=== PATIENT | female | born 1995 | race Caucasian/White ===

== ENCOUNTER 2022-11-21 18:35 | Emergency (ER) | payer SELFPAY ==
[2022-11-21 19:12] LABS: #Basophils 0.1 10x3/uL (0.0-0.2); #Eosinphils 0.1 10x3/uL (0.0-0.5); #Monocytes 0.6 10x3/uL (0.0-1.1); #Neutrophils 4.2 10x3/uL (1.5-8.4); %Basophils 0.7 % (0.0-2.0); %Eosinophils 1.6 % (0.0-6.0); %Lymphocytes 35.1 % (18.0-47.0); %Monocytes 7.7 % (0.0-10.0); %Neutrophils 54.6 % (40.0-75.0); Hematocrit 35.4 % (34.9-44.5); Hemoglobin 11.7 g/dL (12.0-15.5); Mean Corpuscular HGB CONC 33.1 g/dL (32.0-36.0); Mean Corpuscular Hemoglobin 31.5 pg (27.0-33.0); Mean Corpuscular Volume 95.4 fl (81.6-98.3); Mean Platelet Volume 9.6 fl (7.4-10.4); Platelet Count 270 10x3/uL (150-450); RBC Distribution Width 12.6 % (11.5-14.5); Red Blood Cell (RBC) Count 3.71 10x6/uL (3.90-5.03); White Blood Cell (WBC) Count 7.7 10x3/uL (3.5-10.5)
[2022-11-21 19:29] LABS: ALT (SGPT) 58 U/L (8-55); AST (SGOT) 32 U/L (5-34); Albumin 4.1 g/dL (3.5-5.0); Alkaline Phosphatase 76 U/L (40-110); Anion Gap 12 mmol/L (10-20); BUN (Urea Nitrogen) 13 mg/dL (7.0-18.7); Bilirubin, Total 0.5 mg/dL (0.2-1.2); Calc. Creatinine Clearance 0 mL/min (70-130); Carbon Dioxide 22 mmol/L (22-29); Chloride 107 mmol/L (98-107); Estimated GFR 91; Globulin 2.6 g/dL (2.4-3.5); Glucose 101 mg/dL (70-105); Potassium 4.1 mmol/L (3.5-5.1); Protein, Total 6.7 g/dL (6.0-8.3); Sodium 137 mmol/L (136-145)
[2022-11-21] MEDS ORDERED: Ketorolac Tromethamine 30 MG/ML VIAL ONE (21:04)
== END 2022-11-21 21:11 | disposition home or self-care (01) ==
LOC: CSHERS 18:35
DX: R07.89 Other chest pain (principal); R06.02 Shortness of breath; F17.290 Nicotine dependence, other tobacco product, uncomplicated
CPT/HCPCS: 36415; 71045; 80053; 85025; 93005; 96372; J1885

== ENCOUNTER 2023-02-01 16:52 | Emergency (ER) | payer SELFPAY ==
[2023-02-01] MEDS ORDERED: Dicyclomine 20 MG/2 ML VIAL ONE (17:35)
[2023-02-01] MEDS ORDERED: Ondansetron PF 4 MG/2 ML Vial ONE (17:35)
[2023-02-01 17:42] LABS: #Eosinphils 0.1 10x3/uL (0.0-0.5); #Monocytes 0.6 10x3/uL (0.0-1.1); #Neutrophils 3.9 10x3/uL (1.5-8.4); %Basophils 0.3 % (0.0-2.0); %Lymphocytes 32.9 % (18.0-47.0); %Monocytes 8.6 % (0.0-10.0); %Neutrophils 55.9 % (40.0-75.0); Hematocrit 38.8 % (34.9-44.5); Hemoglobin 12.8 g/dL (12.0-15.5); Mean Corpuscular Hemoglobin 30.8 pg (27.0-33.0); Mean Corpuscular Volume 93.5 fl (81.6-98.3); Mean Platelet Volume 9.7 fl (7.4-10.4); Platelet Count 255 10x3/uL (150-450); RBC Distribution Width 11.9 % (11.5-14.5); Red Blood Cell (RBC) Count 4.15 10x6/uL (3.90-5.03)
[2023-02-01 17:49] LABS: ALT (SGPT) 19 U/L (8-55); AST (SGOT) 20 U/L (5-34); Albumin 4.2 g/dL (3.5-5.0); Alkaline Phosphatase 62 U/L (40-110); Anion Gap 12 mmol/L (10-20); BUN (Urea Nitrogen) 11 mg/dL (7.0-18.7); Bilirubin, Total 0.3 mg/dL (0.2-1.2); Calc. Creatinine Clearance 0 mL/min (70-130); Calcium 8.8 mg/dL (7.8-10.44); Carbon Dioxide 22 mmol/L (22-29); Chloride 108 mmol/L (98-107); Estimated GFR 117; Globulin 2.6 g/dL (2.4-3.5); Glucose 103 mg/dL (70-105); Lipase 17 U/L (8-78); Magnesium 1.9 mg/dL (1.6-2.6); Potassium 4.2 mmol/L (3.5-5.1); Protein, Total 6.8 g/dL (6.0-8.3); Sodium 138 mmol/L (136-145)
[2023-02-01 17:53] LABS: Troponin I Less than 0.010 ng/mL (< 0.028)
[2023-02-01 18:20] LABS: Bilirubin Neg (Negative); Blood, Urine Negative (Negative); Clarity Clear (Clear); Glucose, Urine (Dipstick) Normal (Negative); Ketone, Urine 5 mg/dL (Negative); Leukocyte Negative (Negative); Nitrite Negative (Negative); Protein, Urine (Dipstick) 30 mg/dl (Neg-Trace); Urobilinogen Normal mg/dL (Less than 2)
[2023-02-01 18:23] LABS: Pregnancy Test - Urine (BHCG) Negative (Negative); Pregu Control Background? CLEAR/WHITE (CLR/WHITE); Pregu Control Bar Appear? YES (CONTROL BAR)
[2023-02-01 18:33] LABS: CAUTI Indications for Culture Dysuria,urgency,freq; RBC/HPF None Seen HPF (0-3)
[2023-02-01 18:34] LABS: Bacteria/HPF 1+ HPF (None Seen)
[2023-02-01 18:37] LABS: Calcium Oxalate Crystals 2+ HPF (None Seen)
[2023-02-01 18:39] LABS: Urine Culture Reflex No No
[2023-02-01] MEDS ORDERED: Ketorolac Tromethamine 30 MG/ML VIAL ONE (18:39)
[2023-02-01] MEDS ORDERED: Azithromycin 250 MG TAB ONE (19:56)
== END 2023-02-01 20:06 | disposition home or self-care (01) ==
LOC: CSHERS 16:52
DX: R11.10 Vomiting, unspecified (principal); R19.7 Diarrhea, unspecified; F17.290 Nicotine dependence, other tobacco product, uncomplicated
CPT/HCPCS: 71045; 76705; 80053; 81001; 81025; 83690; 83735; 84484; 85025; 93005; 94760; 96361; 96372; 96374; 96375; J1885; J2405

== ENCOUNTER 2023-04-28 23:05 | Emergency (ER) | payer SELFPAY ==
[2023-04-29 00:15] LABS: Bilirubin Neg (Negative); Blood, Urine Negative (Negative); Glucose, Urine (Dipstick) Normal (Negative); Ketone, Urine Negative (Negative); Leukocyte Negative (Negative); Nitrite Negative (Negative); Protein, Urine (Dipstick) Negative (Neg-Trace); Specific Gravity, Urine 1.015 (1.005-1.030); Urobilinogen Normal mg/dL (Less than 2)
[2023-04-29 00:25] LABS: Clarity Clear (Clear)
[2023-04-29 00:26] LABS: #Basophils 0.1 10x3/uL (0.0-0.2); #Eosinphils 0.2 10x3/uL (0.0-0.5); #Monocytes 0.6 10x3/uL (0.0-1.1); #Neutrophils 3.5 10x3/uL (1.5-8.4); %Basophils 0.8 % (0.0-2.0); %Eosinophils 2.4 % (0.0-6.0); %Lymphocytes 44.5 % (18.0-47.0); %Monocytes 7.8 % (0.0-10.0); %Neutrophils 44.1 % (40.0-75.0); Hematocrit 38.1 % (34.9-44.5); Hemoglobin 12.8 g/dL (12.0-15.5); Mean Corpuscular HGB CONC 33.6 g/dL (32.0-36.0); Mean Corpuscular Hemoglobin 31.1 pg (27.0-33.0); Mean Corpuscular Volume 92.7 fl (81.6-98.3); Mean Platelet Volume 9.3 fl (7.4-10.4); Platelet Count 335 10x3/uL (150-450); RBC Distribution Width 12.4 % (11.5-14.5); Red Blood Cell (RBC) Count 4.11 10x6/uL (3.90-5.03); White Blood Cell (WBC) Count 7.9 10x3/uL (3.5-10.5)
[2023-04-29 00:28] LABS: Bacteria/HPF Rare-Few HPF (None Seen); CAUTI Indications for Culture Pelvic or flank pain; RBC/HPF None Seen HPF (0-3); Squamous Epithelial 0-3 HPF (0-3); WBC/HPF 0-3 HPF (0-3)
[2023-04-29 00:30] LABS: Urine Culture Reflex No No
[2023-04-29 00:50] LABS: ALT (SGPT) 38 U/L (8-55); AST (SGOT) 31 U/L (5-34); Albumin 4.4 g/dL (3.5-5.0); Alkaline Phosphatase 72 U/L (40-110); Anion Gap 13 mmol/L (10-20); BUN (Urea Nitrogen) 14 mg/dL (7.0-18.7); Bilirubin, Total 0.3 mg/dL (0.2-1.2); Calc. Creatinine Clearance 0 mL/min (70-130); Calcium 9.5 mg/dL (7.8-10.44); Carbon Dioxide 20 mmol/L (22-29); Chloride 106 mmol/L (98-107); Estimated GFR 120; Glucose 91 mg/dL (70-105); Potassium 4.3 mmol/L (3.5-5.1); Protein, Total 7.4 g/dL (6.0-8.3); Sodium 135 mmol/L (136-145)
== END 2023-04-29 01:42 | disposition home or self-care (01) ==
LOC: CSHERS 23:05
DX: O99.611 Diseases of the digestive system complicating pregnancy, first trimester (principal); O99.331 Smoking (tobacco) complicating pregnancy, first trimester; Z3A.01 Less than 8 weeks gestation of pregnancy
CPT/HCPCS: 76856; 80053; 81001; 84702; 85025; 86900; 86901

== ENCOUNTER 2023-05-02 12:24 | Emergency (ER) | payer SELFPAY ==
[2023-05-02] MEDS ORDERED: Acetaminophen 500 MG TAB ONE (14:10)
[2023-05-02 15:53] LABS: Bilirubin Neg (Negative); Blood, Urine Negative (Negative); Clarity Clear (Clear); Glucose, Urine (Dipstick) Normal (Negative); Ketone, Urine Negative (Negative); Leukocyte Negative (Negative); Nitrite Negative (Negative); Protein, Urine (Dipstick) Negative (Neg-Trace); Urobilinogen Normal mg/dL (Less than 2)
[2023-05-02 16:01] LABS: Bacteria/HPF Rare-Few HPF (None Seen); CAUTI Indications for Culture < 2yrs of age; RBC/HPF None Seen HPF (0-3); Squamous Epithelial 0-3 HPF (0-3); WBC/HPF None Seen HPF (0-3)
[2023-05-02 16:02] LABS: Urine Culture Reflex Yes Yes
== END 2023-05-02 16:53 | disposition home or self-care (01) ==
LOC: CSHERS 12:24
DX: O99.611 Diseases of the digestive system complicating pregnancy, first trimester (principal); F17.290 Nicotine dependence, other tobacco product, uncomplicated; Z3A.00 Weeks of gestation of pregnancy not specified
CPT/HCPCS: 36415; 76856; 81001; 84702; 87086

== ENCOUNTER 2023-05-20 15:20 | Emergency (ER) | payer SELFPAY ==
[2023-05-20] MEDS ORDERED: Metoclopramide HCl 10 MG (2 mL) VIAL ONE (16:21)
[2023-05-20] MEDS ORDERED: diphenhydrAMINE 50 MG/ML VIAL ONE (16:21)
[2023-05-20 16:45] LABS: #Eosinphils 0.2 10x3/uL (0.0-0.5); #Monocytes 0.6 10x3/uL (0.0-1.1); #Neutrophils 3.4 10x3/uL (1.5-8.4); %Basophils 0.3 % (0.0-2.0); %Eosinophils 2.8 % (0.0-6.0); %Lymphocytes 33.9 % (18.0-47.0); %Monocytes 9.1 % (0.0-10.0); %Neutrophils 53.7 % (40.0-75.0); Hemoglobin 11.8 g/dL (12.0-15.5); Mean Corpuscular HGB CONC 34.7 g/dL (32.0-36.0); Mean Corpuscular Hemoglobin 32.2 pg (27.0-33.0); Mean Corpuscular Volume 92.9 fl (81.6-98.3); Mean Platelet Volume 10.6 fl (7.4-10.4); Platelet Count 224 10x3/uL (150-450); RBC Distribution Width 12.1 % (11.5-14.5); Red Blood Cell (RBC) Count 3.66 10x6/uL (3.90-5.03); White Blood Cell (WBC) Count 6.3 10x3/uL (3.5-10.5)
[2023-05-20] MEDS ORDERED: Morphine 2 MG/ML VIAL ONE (16:57)
[2023-05-20 16:59] LABS: ALT (SGPT) 10 U/L (8-55); AST (SGOT) 13 U/L (5-34); Albumin 4.1 g/dL (3.5-5.0); Alkaline Phosphatase 51 U/L (40-110); Anion Gap 11 mmol/L (10-20); BUN (Urea Nitrogen) 7 mg/dL (7.0-18.7); Bilirubin, Total 0.5 mg/dL (0.2-1.2); Calc. Creatinine Clearance 0 mL/min (70-130); Calcium 8.7 mg/dL (7.8-10.44); Carbon Dioxide 23 mmol/L (22-29); Chloride 104 mmol/L (98-107); Estimated GFR 123; Globulin 2.4 g/dL (2.4-3.5); Glucose 85 mg/dL (70-105); Lipase 27 U/L (8-78); Protein, Total 6.5 g/dL (6.0-8.3); Sodium 134 mmol/L (136-145)
[2023-05-20 17:02] LABS: Troponin I Less than 0.010 ng/mL (< 0.028)
[2023-05-20 20:07] LABS: Bilirubin Neg (Negative); Blood, Urine Negative (Negative); Clarity Clear (Clear); Glucose, Urine (Dipstick) Normal (Negative); Ketone, Urine 50 mg/dL (Negative); Leukocyte 25 (Negative); Nitrite Negative (Negative); Protein, Urine (Dipstick) 15 mg/dl (Neg-Trace); Specific Gravity, Urine 1.025 (1.005-1.030); Urobilinogen Normal mg/dL (Less than 2)
[2023-05-20 20:24] LABS: Bacteria/HPF 3+ HPF (None Seen); CAUTI Indications for Culture Fever or rigors; Mucous/LPF 4+ LPF (<2+); RBC/HPF None Seen HPF (0-3); WBC/HPF 0-3 HPF (0-3)
[2023-05-20 20:25] LABS: Urine Culture Reflex No No
== END 2023-05-20 21:21 | disposition home or self-care (01) ==
LOC: CSHERS 15:20
DX: O21.1 Hyperemesis gravidarum with metabolic disturbance (principal); O99.331 Smoking (tobacco) complicating pregnancy, first trimester; F17.290 Nicotine dependence, other tobacco product, uncomplicated; Z3A.08 8 weeks gestation of pregnancy
CPT/HCPCS: 36415; 71045; 80053; 81001; 83605; 83690; 84484; 85025; 87086; 93005; 96361; 96365; 96375; J1200; J2272; J2765

== ENCOUNTER 2023-09-16 21:01 | Emergency (ER) | payer OTHER | END 2023-09-16 21:52 | disposition home or self-care (01) | LOC: CSHERS 21:01 | DX: O99.512 Diseases of the respiratory system complicating pregnancy, second trimester (principal); J20.9 Acute bronchitis, unspecified; O99.891 Other specified diseases and conditions complicating pregnancy; H65.91 Unspecified nonsuppurative otitis media, right ear; O99.332 Smoking (tobacco) complicating pregnancy, second trimester; F17.290 Nicotine dependence, other tobacco product, uncomplicated; Z3A.25 25 weeks gestation of pregnancy ==

== ENCOUNTER 2023-12-12 17:02 | Day surgery (SDC) | payer OTHER ==
[2023-12-12] MEDS ORDERED: hydrALAZINE 20 MG/ML VIAL SLOW IVP PRN (17:04)
[2023-12-12 17:30] VITALS: BMI 27.1
[2023-12-12 18:01] LABS: Fetal Membranes Rupture No Membranes Rupture (No Rupture)
== END 2023-12-12 18:25 | disposition home or self-care (01) ==
LOC: CSHLD/OP 17:02
PROVIDERS: ATTEND Family Medicine
DX: Z03.71 Encounter for suspected problem with amniotic cavity and membrane ruled out (principal); O00.01 Abdominal pregnancy with intrauterine pregnancy; Z3A.37 37 weeks gestation of pregnancy
CPT/HCPCS: 84112; 99283

== ENCOUNTER 2023-12-22 06:00 | Inpatient (IN) | payer OTHER ==
[2023-12-22] MEDS ORDERED: Diphenoxylate HCl/Atropine Tablet PO PRN (06:58)
[2023-12-22] MEDS ORDERED: HYDROcodone/Acetaminophen 5/325 mg Tablet PO PRN (06:58)
[2023-12-22] MEDS ORDERED: Tranexamic Acid 1,000 MG/10 ML VIAL IVP PRN (06:58)
[2023-12-22] MEDS ORDERED: Lactated Ringer's 1,000 ML IV SCH (06:58)
[2023-12-22] MEDS ORDERED: hydrALAZINE 20 MG/ML VIAL SLOW IVP PRN ×2 (06:58→18:11)
[2023-12-22] MEDS ORDERED: Misoprostol 200 MCG TAB PR PRN (06:58)
[2023-12-22] MEDS ORDERED: Promethazine HCl 25 MG/ML VIAL IM PRN ×2 (06:58→18:11)
[2023-12-22] MEDS ORDERED: Lidocaine 1% (PF) 30 ML VIAL SC PRN (06:58)
[2023-12-22] MEDS ORDERED: Carboprost 250 MCG/ML AMP IM PRN (06:58)
[2023-12-22] MEDS ORDERED: Oxytocin 30 units/NS 500 ML 500 ML IV SCH ×2 (06:58)
[2023-12-22] MEDS ORDERED: Acetaminophen 500 MG TAB PO PRN (06:58)
[2023-12-22] MEDS ORDERED: Methylergonovine 0.2 MG/ML VIAL IM PRN (06:58)
[2023-12-22 07:00] VITALS: BMI 27.8
[2023-12-22] MEDS: Oxytocin 30 units/NS 500 ML 500 ML IV SCH (07:24)
[2023-12-22 07:31] LABS: Hematocrit 31.3 % (34.9-44.5); Hemoglobin 9.7 g/dL (12.0-15.5); Mean Corpuscular Hemoglobin 27.9 pg (27.0-33.0); Mean Corpuscular Volume 89.9 fL (81.6-98.3); Mean Platelet Volume 10.1 fL (7.4-10.4); Platelet Count 209 10x3/uL (150-450); RBC Distribution Width 15.4 % (11.5-14.5); Red Blood Cell (RBC) Count 3.48 10x6/uL (3.90-5.03); White Blood Cell (WBC) Count 7.2 10x3/uL (3.5-10.5)
[2023-12-22 08:06] LABS: HBsAg Index 0.18 S/CO (0-0.99); Hep B Surf Ag - L&D Non-Reactive S/CO (NonReactive)
[2023-12-22 08:08] LABS: Syphilis Antibody Nonreactive (Nonreactive); Syphilis Antibody Index 0.07 S/CO (<1.00 Non-Reactive)
[2023-12-22] MEDS: fentaNYL 50 mcg/mL 1 mL Vial SLOW IVP PRN (10:39)
[2023-12-22] MEDS: fentaNYL/Ropivacaine Epidural 100 ML ONE (11:19)
[2023-12-22] MEDS: Ibuprofen 800 MG TAB PO PRN (16:41)
[2023-12-22] MEDS: Ondansetron PF 4 MG/2 ML Vial IVP PRN (17:24)
[2023-12-22] MEDS ORDERED: diphenhydrAMINE 25 MG CAP PO PRN (18:11)
[2023-12-22] MEDS ORDERED: Bisacodyl 10 MG SUPP PR PRN (18:11)
[2023-12-22] MEDS ORDERED: Milk Of Magnesia 30 ML UDCUP PO PRN (18:11)
[2023-12-22] MEDS ORDERED: Ondansetron PF 4 MG/2 ML Vial IVP PRN (18:11)
[2023-12-22] MEDS: Ferrous Sulfate 325 MG TAB PO SCH (19:02)
[2023-12-22] MEDS: Benzocaine-Menthol 82.5 ML CAN TOP PRN (19:13)
[2023-12-22] MEDS: Docusate 100 MG CAP PO SCH (19:14)
[2023-12-22] MEDS: HYDROcodone/Acetaminophen 5/325 mg Tablet PO PRN (20:21)
[2023-12-23] MEDS: Ibuprofen 800 MG TAB PO SCH (01:44)
[2023-12-23] MEDS: Boostrix 0.5 ML (Tdap) VIAL (>/=7 yrs of age) IM ONE (08:25)
[2023-12-23] MEDS: Prenatal Vitamin 1 TAB PO SCH (08:50)
[2023-12-23] MEDS: Ferrous Sulfate 325 MG TAB PO SCH (08:50)
[2023-12-23 11:30] VITALS: BP 112/62; TEMP 98
== END 2023-12-23 18:04 | disposition home or self-care (01) | DRG 807 ==
LOC: CSHLD 06:13 → CSHPP 17:40
PROVIDERS: ADMIT Family Medicine; ATTEND Family Medicine
PROC: 10E0XZZ Delivery of Products of Conception, External Approach (ICD-10-PCS; principal; 2023-12-22)
PROC: 0KQM0ZZ Repair Perineum Muscle, Open Approach (ICD-10-PCS; 2023-12-22)
PROC: 10907ZC Drainage of Amniotic Fluid, Therapeutic from Products of Conception, Via Natural or Artificial Opening (ICD-10-PCS; 2023-12-22)
PROC: 3E033VJ Introduction of Other Hormone into Peripheral Vein, Percutaneous Approach (ICD-10-PCS; 2023-12-22)
DX: O70.1 Second degree perineal laceration during delivery (principal); Z37.0 Single live birth; Z3A.39 39 weeks gestation of pregnancy; O64.0XX0 Obstructed labor due to incomplete rotation of fetal head, not applicable or unspecified
CPT/HCPCS: 36415; 51702; 85027; 86780; 86850; 86900; 86901; 87340; J2405; J2590; J3010